=== PATIENT | male | born 1995 | race Native Hawaiian/Other Pacific Islander ===

== ENCOUNTER 2021-06-19 10:21 | Emergency (ER) | payer OTHER ==
[~2021-06-19] VITALS: Ht 182.9 cm; Wt 108.9 kg
[2021-06-19 11:06] LABS: PLATELET COUNT 315 K/uL (142-355)
[2021-06-19 11:08] LABS: POTASSIUM 3.4 mmol/L (3.6-5.2)
[2021-06-19 11:50] VITALS: BP 156/79; TEMP 98.1
== END 2021-06-19 11:50 | disposition home or self-care (01) ==
LOC: ED 10:21
PROVIDERS: Emergency Medicine
DX: R42 Dizziness and giddiness (principal); Z20.822 Contact with and (suspected) exposure to COVID-19
CPT/HCPCS: 80048; 85027; 87635; 99283; U0003